=== PATIENT | male | born 1975 | race Caucasian/White ===

== ENCOUNTER 2017-08-02 10:10 | Day surgery (SDC) | payer OTHER ==
[~2017-08-02] VITALS: Ht 177.8 cm; Wt 80.3 kg
[2017-08-02] VITALS (17 sets, daily range): BP systolic 82–120; BP diastolic 38–61
--- NOTE | 2017-08-02 08:56 | Pre-Procedure Note/Attestation ---
Pre-Procedure Note/Attestation Complete Prior to Procedure Planned Procedure: right Procedure Narrative: shoulder arthroscopy, sad Indications for Procedure Pre-Operative Diagnosis: right shoulder impingement Attestation I attest that I discussed the nature of the procedure; its benefits; risks and complications; and alternatives (and the risks and benefits of such alternatives ), prior to the procedure, with the patient (or the patient's legal client relations representative). I attest that, if there was a reasonable possibility of needing a blood transfusion, the patient (or the patient's legal client relations representative) was given the [facility] standardized written summary, pursuant to the [place] Blood Safety Act ([place] Health and Safety Code # 1645, as amended). I attest that I re-evaluated the patient just prior to the surgery and that there has been no change in the patient's H&P, except as documented below: IAN VARGAS Aug 02, 2017 08:56
--- NOTE | 2017-08-02 08:57 | Operative Note - PDOC ---
Operative Note Operative Note Pre-op Diagnosis: right shoulder impingement Procedure: right shoulder arthroscopy, sadt Post-op Diagnosis: same as pre-op plus Anesthesia: regional Specimen: none Complications: none Condition: stable Estimated Blood Loss: none Implant(s) used?: No IAN VARGAS Aug 02, 2017 08:57
[~2017-08-02 10:10] MED LIST: Acetaminophen (Non formulary) 100 ML IV ONE; D5 1/2NS 1,000 ML IV SCH; HYDROmorphone 1mg/ml Carpuject SUBQ PRN; Norco 5mg/325mg tab ORAL PRN; Tylenol #3 tab (300mg/30mg) ORAL PRN; ceFAZolin 1gm in D5W 55ml IVP ONE; celeBREX 200mg Cap **SURGERY PATIENTS ONLY ORAL ONE; oxyCONTIN 20mg tab ORAL ONE
[2017-08-02] MEDS ORDERED: BACLOFEN10 MG ORAL (10:48)
[2017-08-02] MEDS ORDERED: TRUVADA 200 MG1 EAC1 ORAL (10:48)
[2017-08-02] MEDS ORDERED: STENDRA100 MG PO (10:48)
[2017-08-02] MEDS ORDERED: TEMAZEPAM15 MG ORAL (10:48)
[2017-08-02] MEDS ORDERED: PREVACID15 M2 ORAL (10:48)
[2017-08-02] MEDS ORDERED: celeBREX 200mg Cap **SURGERY PATIENTS ONLY ORAL ONE (11:18)
[2017-08-02] MEDS ORDERED: LR 1000ml ONE (12:00)
[2017-08-02] MEDS ORDERED: Metoclopramide 10mg/2ml Inj ONE (12:00)
[2017-08-02] MEDS ORDERED: Propofol 200mg/20ml IV ONE (12:00)
[2017-08-02] MEDS ORDERED: Ketorolac 30mg Inj ONE (12:00)
[2017-08-02] MEDS ORDERED: Glycopyrrolate 0.2mg/ml 1ml Vial ONE (12:00)
[2017-08-02] MEDS ORDERED: fentaNYL 100 mcg/2 mL IV ONE (12:00)
[2017-08-02] MEDS ORDERED: Midazolam 2mg/2ml Inj ONE (12:00)
[2017-08-02] MEDS ORDERED: NS Irrig 1000ml ONE (12:00)
[2017-08-02] MEDS ORDERED: Bupivacaine 0.25% Inj 30ml INJ ONE (12:26)
[2017-08-02] MEDS ORDERED: EPINEPHrine 1mg/1ml Amp ONE (12:26)
[2017-08-02] MEDS ORDERED: Ropivacaine 5mg/ml Vial 30ml INJ ONE (12:26)
[2017-08-02] MEDS ORDERED: LR 1000ml 1,000 ML IVLG SCH (13:12)
[2017-08-02] MEDS ORDERED: Acetaminophen (Non formulary) 100 ML IV ONE (13:15)
[2017-08-02] MEDS ORDERED: Midazolam 2mg/2ml Inj IVP PRN (13:15)
[2017-08-02] MEDS ORDERED: Ketorolac 30mg Inj IV PRN (13:15)
[2017-08-02] MEDS ORDERED: fentaNYL 100 mcg/2 mL IV PRN (13:15)
[2017-08-02] MEDS ORDERED: DiphenhydrAMINE 50mg/ml Inj IVP PRN (13:15)
--- NOTE | 2017-08-02 13:16 | Anethesia Preoperative Eval ---
Anesthesia Pre-op PMH/ROS General Date of Evaluation: Aug 02, 2017 Time of Evaluation: 12:16 Anesthesiologist: Tiara ASA Score: ASA 2 Mallampati Score Class I : Soft palate, uvula, fauces, pillars visible Class II: Soft palate, uvula, fauces visible Class III: Soft palate, base of uvula visible Class IV: Only hard plate visible Mallampati Classification: Class I Surgeon: Gerald Diagnosis: Right Shoulder tear Surgical Procedure: Right Shoulder Arthroscopy Anesthesia History: none Family History: no anesthesia problems Allergies: Uncoded Allergies: ALL NUTS (Allergy, Mild, 08/02/17) TINGLING IN MOUTH AND THROAT FEELS FUNNY Medications: see eMAR Anesthesia Pre-op Phys. Exam Physician Exam Last Vital Signs Date Time Temp Pulse Resp B/P (MAP) Pulse Ox O2 Delivery O2 Flow Rate FiO2 08/02/17 10:53 96.8 48 20 120/56 97 Room Air Constitutional: NAD Neurologic: CN 2-12 intact Cardiovascular: RRR Respiratory: CTA Gastrointestinal: S/NT/ND Airway Exam Mallampati Score: Class I MO: full ROM: full Teeth: intact Anesthesia Pre-op A/P Risk Assessment & Plan Plan: GA Status Change Before Surgery: No Pre-Antibiotics Drug: Ancef Given Within 1 Hr of Incision: Yes Time Given: 13:00 Joe Menjivar M.D. Aug 02, 2017 13:16
--- NOTE | 2017-08-02 13:18 | Immediate Post-Op Evaluation ---
Immediate Post-Op Evalulation Immediate Post-Op Evalulation Procedure: Right Shoulder Arthroscopy Date of Evaluation: Aug 02, 2017 Time of Evaluation: 15:00 IV Fluids: 1000 Blood Products: 0 Estimated Blood Loss: 20 Urinary Output: 0 Blood Pressure Systolic: 126 Blood Pressure Diastolic: 62 Pulse Rate: 45 Respiratory Rate: 18 O2 Sat by Pulse Oximetry: 99 Temperature (Fahrenheit): 98 Pain Score (1-10): 0 Nausea: No Vomiting: No Complications none Patient Status: awake, reacts, patent, extubated Hydration Status: adequate Drug: Ancef Given Within 1 Hr of Incision: Yes Time Given: 13:00 Joe Menjivar M.D. Aug 02, 2017 13:18
--- NOTE | 2017-08-02 13:22 | 48 Hour Post Anesthesia Eval ---
Post Anesthesia Evaluation Procedure: Right Shoulder Arthroscopy Date of Evaluation: Aug 04, 2017 Time of Evaluation: 09:00 Blood Pressure Systolic: 145 0: 63 Pulse Rate: 42 Respiratory Rate: 16 Temperature (Fahrenheit): 98 O2 Sat by Pulse Oximetry: 99 Airway: patent Nausea: No Vomiting: No Pain Intensity: 0 Hydration Status: adequate Mental Status/LOC: patient returned to baseline Post-Anesthesia Complications: none Follow-up care needed: patient intructions given Joe Menjivar M.D. Aug 02, 2017 13:22
--- NOTE | 2017-08-02 20:45 | Operative Note - Dictated ---
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 POSTOPERATIVE DIAGNOSIS: Right shoulder traumatic impingement syndrome. PROCEDURE: 1. Right shoulder arthroscopy. 2. Right shoulder subacromial decompression, bursectomy, and release of a CA ligament. SURGEON: Gerardo Duarte M.D. ANESTHESIA: MAC with general. INDICATION FOR PROCEDURE: The patient is a pleasant gentleman, who has had progressive right shoulder pain. He had failed conservative treatments. He had a positive response to cortisone injection, therefore, elected to undergo right shoulder arthroscopy with subacromial decompression bursectomy. Risks, limitations, expectations, and complications of procedure were discussed in detail. All questions addressed. DESCRIPTION OF PROCEDURE: An informed consent was obtained. The patient was brought to the operating room and placed under general interscalene anesthesia. The patient was then carefully placed in the beach chair position. Right shoulder was prepped and draped in a sterile manner. Time-out was performed. Portal sites were marked and injected with 0.25% Marcaine with epinephrine. Inferolateral stab incision was then made. Trocar was introduced into the glenohumeral joint. There is no significant chondral damage. The anterior labrum appeared to be intact along with the superior labrum. Biceps tendon was intact. The articular side of the rotator cuff appeared to be intact, although there is some erythema along the footprint of the supraspinatus. The camera was then repositioned in the subacromial space. There was significant hypertrophic bursal tissue. This was removed to visualize the undersurface of the acromion. Acromioplasty was started from medial and lateral and completed from posterior to anterior. Once that was done, the bursectomy was completed posteriorly. The CA ligament was noted to be erythematous and slowly released off the anterolateral acromion. Partial acromioplasty. Instruments removed. Portal sites were closed in 3-0 Monocryl sutures. Steri-Strips and sterile dressing were applied. COMPLICATIONS: None. IMPLANTS: None. BLOOD LOSS: None. Gerardo Duarte M.D. DR: ROSENDO JOB#: [id number] CC:
== END 2017-08-02 12:30 | disposition home or self-care (01) ==
LOC: SUR 10:10
DX: M75.41 Impingement syndrome of right shoulder (principal); Z91.018 Allergy to other foods
CPT/HCPCS: 29826; J0171; J0690; J1885; J2250; J2405; J2704; J2765; J2795; J3010; J3490; J7120; 94003; 94150